=== PATIENT | female | born 1980 | race Caucasian/White ===

== ENCOUNTER 2019-10-29 02:05 | Emergency (ER) | payer OTHER ==
[~2019-10-29] VITALS: Ht 167.6 cm; Wt 79.4 kg
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
[~2019-10-29 02:05] MED LIST: ACETAMINOPHEN325 M1 PO; COLACE 100 MG100 MG PO; HYDROCODON-ACE1 EAC7 PO; LEVAQUIN 750 M750 MG PO; NEURONTIN 300300 M1 PO; NORCO 5-325 TA1 EACH PO; SENNA-S TABLET1 EACH PO
[2019-10-29 02:22] LABS: ABSOLUTE NEUTROPHILS 6.3 thou/uL (1.4-8.2); BASOPHILS 0.8 % (0.0-2.0); EOSINOPHILS 1.2 % (0.0-3.0); HEMATOCRIT 26.5 % (37.0-47.0); HEMOGLOBIN 8.2 gm/dL (12.0-15.0); LYMPHOCYTES 21.5 % (24.0-44.0); MCH 22.4 pg (26.0-34.0); MCHC 31.1 g/dL (28.0-37.0); MONOCYTES 9.2 % (1.0-8.0); PLATELET COUNT 332 thou/uL (150-400); POLYS 67.3 % (36.0-66.0); RBC 3.68 mil/uL (4.20-5.00); RDW 17.6 % (10.5-14.5); WBC 9.4 thou/uL (4.0-11.0)
[2019-10-29 02:48] LABS: ANION GAP 12 mmol/L (7-16); BUN 16 mg/dL (7-18); CALCIUM 8.5 mg/dL (8.5-10.1); CHLORIDE 105 mmol/L (98-107); CO2 22 mmol/L (21-32); CREATININE 0.8 mg/dL (0.6-1.0); GLUCOSE 89 mg/dL (74-106); POTASSIUM 3.2 mmol/L (3.5-5.1); SODIUM 139 mmol/L (136-145)
[2019-10-29 02:53] LABS: SALICYLATE < 2.8 mg/dL (2.8-20.0)
[2019-10-29 03:36] LABS: ANISOCYTOSIS 1+; HYPOCHROMASIA 2+; MICROCYTES 1+; POLYCHROMASIA 1+
[2019-10-29 03:37] LABS: OVALOCYTES 1+
[2019-10-29 04:02] LABS: AMP/METHAMP Negative (Negative); BARBITURATES Negative (Negative); BENZODIAZEPINES POSITIVE (Negative); COCAINE Negative (Negative); METHADONE Negative (Negative); OPIATES Negative (Negative); PCP Negative (Negative)
[2019-10-29 04:32] LABS: URINE BILIRUBIN NEGATIVE (Negative); URINE BLOOD 3+ (Negative); URINE CLARITY CLEAR; URINE COLOR YELLOW; URINE GLUCOSE-RANDOM* NEGATIVE (Negative); URINE KETONES NEGATIVE (Negative); URINE NITRITE-REFLEX NEGATIVE (Negative); URINE PROTEIN (DIPSTICK) TRACE (Negative); URINE SPECIFIC GRAVITY >= 1.030 (1.005-1.035); URINE UROBILINOGEN 0.2 E.U./dl (0.2-1.0)
[2019-10-29 04:41] LABS: URINE LEUKOCYTES-REFLEX 1+ (Negative)
[2019-10-29 04:51] LABS: CASTS None Seen /LPF (None Seen); MUCUS 0-3 Light strn/LPF (None Seen); SQUAMOUS 0-3 Few /LPF (0-3); URINE RBC >20 Many /HPF (0-2); URINE WBC-REFLEX >25 Many /HPF (0-5)
[2019-10-29 04:52] LABS: CRYSTALS None Seen /LPF (None Seen)
[2019-10-29 08:30] VITALS: BP 94/47
--- NOTE | 2019-10-29 11:44 | EKG ---
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: : 1980 Requested By: Soy Samano Order Number: [id number] MD: David Martinez Measurements Intervals [place] Rate: 73 P: 35 IN: 195 QRS: -12 QRSD: 82 T: 16 QT: 412 QTc: 454 Interpretive Statements Sinus rhythm RSR' in V1 or V2, right VCD Borderline T abnormalities, anterior leads Compared to ECG 01/06/2018 00:21:04 T-wave abnormality now present Electronically Signed On 10-29-2019 11:44:18 CDT by David Martinez [email or web address] <ELECTRONICALLY SIGNED> By: David Martinez MD, [facility] 10/29/19 1144 0216 0216 David Martinez MD, [facility] /EPI
== END 2019-10-29 08:37 | disposition home or self-care (01) ==
LOC: ER 02:05
PROVIDERS: Emergency Medicine
DX: F15.90 Other stimulant use, unspecified, uncomplicated (principal); R53.1 Weakness; Z90.49 Acquired absence of other specified parts of digestive tract; Z86.2 Personal history of diseases of the blood and blood-forming organs and certain disorders involving the immune mechanism